=== PATIENT | male | born 1980 | race Hispanic/Latino ===

== ENCOUNTER 2019-07-10 10:37 | Day surgery (SDC) | payer OTHER ==
[2019-07-09 15:10] VITALS: BP 130/92
[2019-07-09 15:22] LABS: BASOPHILS % (AUTO) 0.9 % (0.0-5.0); EOSINOPHILS % (AUTO) 0.6 % (0.0-8.0); HEMATOCRIT 48.6 % (42-54); LYMPHOCYTES % (AUTO) 25.9 % (21.0-51.0); MEAN CORPUSCULAR HEMOGLOBIN 31.4 pg (27.0-33.0); MEAN CORPUSCULAR HGB CONC 34.3 g/dL (32.0-36.0); MEAN CORPUSCULAR VOLUME 91.8 fL (79-99); MONOCYTES % (AUTO) 6.2 % (3.0-13.0); NEUTROPHILS % (AUTO) 66.4 % (40.0-77.0); PLATELET COUNT (AUTO) 237 K/uL (130-400); RED CELL DISTRIBUTION WIDTH 13.9 % (11.0-15.5); WHITE BLOOD COUNT (AUTO) 7.3 K/uL (4.8-10.8)
[2019-07-09 15:31] LABS: CREATININE 0.9 mg/dL (0.5-1.5); POTASSIUM 4.1 mmol/L (3.5-5.1)
[2019-07-10] VITALS (17 sets, daily range): BP systolic 110–132; BP diastolic 74–89
[~2019-07-10] VITALS: Ht 157.5 cm; Wt 63.9 kg
[~2019-07-10 10:37] MED LIST: ACET-2743 PO
[2019-07-10] MEDS: CEFAZOLIN SODIUM 1 GM VIAL IVP ONE ×2 (11:00→14:55)
[2019-07-10] MEDS ORDERED: CEFAZOLIN SODIUM 1 GM VIAL ONE ×2 (11:20→15:20)
[2019-07-10] MEDS ORDERED: LACTATED RINGERS 1000ML 1,000 ML IV ONE (11:20)
--- NOTE | 2019-07-10 11:40 | NUR ---
POTENTIAL FOR INFECTION: SHAVED LEFT SHOULDER / UPPER ARM PER MOIZ MCINTOSH, FOLLOWED BY WIPING WITH JORDEN: 2% CHLORHEXIDINE GLUCONATE CLOTH PATIENTS PRE-OP SKIN PREP .
[2019-07-10] MEDS ORDERED: ONDANSETRON HCL 4 MG/2 ML VIAL ONE (14:41)
[2019-07-10] MEDS ORDERED: PROPOFOL 10 MG/ML 20ML VIAL IV ONE (14:41)
[2019-07-10] MEDS ORDERED: SUCCINYLCHOLINE 200MG/10ML SYR ONE (14:41)
[2019-07-10] MEDS ORDERED: LIDOCAINE PF 2% 5ML ABBOJECT ONE ×2 (14:41→14:42)
[2019-07-10] MEDS ORDERED: DEXAMETHASONE SOD PHOSPHATE 10MG/ML 1ML VIAL ONE (14:41)
[2019-07-10] MEDS ORDERED: GLYCOPYRROLATE 1 MG/5 ML SYRINGE ONE (14:41)
[2019-07-10] MEDS ORDERED: NEOSTIGMINE 5MG/5ML SYR IV ONE (14:42)
[2019-07-10] MEDS ORDERED: FENTANYL CITRATE PF 50 MCG/1 ML 2ML VIAL ONE (14:42)
[2019-07-10] MEDS ORDERED: MIDAZOLAM HCL 1 MG/ML 2ML VIAL ONE (14:42)
[2019-07-10] MEDS ORDERED: ROCURONIUM 10MG/1ML SYR 10 MG/ML ML ONE (14:42)
[2019-07-10] MEDS ORDERED: EPINEPHRINE 1 MG/ML 30ML VIAL IJ ONE (15:20)
[2019-07-10] MEDS ORDERED: ROPIVACAINE 0.5% 5MG/ML 30ML IJ ONE (16:58)
[2019-07-10] MEDS ORDERED: CEPH500B PO (17:22)
[2019-07-10] MEDS ORDERED: IBUP-2070 PO (17:22)
[2019-07-10] MEDS ORDERED: HYDR-4457 PO (17:22)
--- NOTE | 2019-07-10 20:06 | NUR ---
PT AAOX3, NO C/O PAIN TO LT SHOULDER, STATES JUST FEELS SORE, DRESSING IS D/I. PT ABLE TO TOLERATE FLUIDS. POST CARE INSTRUCTIONS GIVEN TO PT AND MOTHER, BOTH VERBALIZED UNDERSTANDING. PT GIVEN 3 PRESCRIPTIONS. PT ABLE TO DRESS AT BEDSIDE WITH ASSISTANCE. PT GIVEN ICE PACKS. PT PLACED IN WHEELCHAIR AND DRIVEN HOME.
== END 2019-07-10 19:20 | disposition home or self-care (01) ==
LOC: DAH 10:37
PROVIDERS: ATTEND Orthopaedic Surgery
DX: M75.52 Bursitis of left shoulder (principal); M25.812 Other specified joint disorders, left shoulder; M75.42 Impingement syndrome of left shoulder
CPT/HCPCS: 29822; 29824; 29826; 36415; 76942; 80048; 85025; A4215; A4221; A4223; A4565; A4600; A4649 ×2; A4930 ×2; A5120; A6204; G0168; J0171; J0330; J0690 ×2; J1100; J2001 ×2; J2250; J2405; J2704; J2710; J2795; J3010; J3490; J7120 ×2

== ENCOUNTER 2020-07-03 11:02 | Emergency (ER) | payer BC ==
[~2020-07-03 11:02] MED LIST changes: +CEPH500B PO; +HYDR-4457 PO; +IBUP-2070 PO
[2020-07-03] MEDS ORDERED: ONDANSETRON HCL 4 MG/2 ML VIAL ONE (11:27)
[2020-07-03] MEDS ORDERED: MORPHINE SULFATE 4 MG/1ML SYG ONE ×2 (11:28→11:54)
[2020-07-03 11:52] LABS: BASOPHILS % (AUTO) 1.1 % (0.0-5.0); EOSINOPHILS % (AUTO) 0.8 % (0.0-8.0); HEMATOCRIT 50.9 % (42-54); LYMPHOCYTES % (AUTO) 26.4 % (21.0-51.0); MEAN CORPUSCULAR HEMOGLOBIN 30.1 pg (27.0-33.0); MEAN CORPUSCULAR HGB CONC 33.6 g/dL (32.0-36.0); MEAN CORPUSCULAR VOLUME 89.6 fL (79-99); NEUTROPHILS % (AUTO) 64.5 % (40.0-77.0); PLATELET COUNT (AUTO) 195 K/uL (130-400); RED BLOOD CELL COUNT(AUTO) 5.68 MIL/uL (4.50-6.20); RED CELL DISTRIBUTION WIDTH 13.4 % (11.0-15.5); WHITE BLOOD COUNT (AUTO) 6.3 K/uL (4.8-10.8)
[2020-07-03] MEDS ORDERED: LORAZEPAM 2 MG/ML 1 ML VIAL ONE (11:52)
[2020-07-03 11:59] LABS: CREATININE 0.8 mg/dL (0.5-1.5); POTASSIUM 3.7 mmol/L (3.5-5.1)
[2020-07-03 12:02] LABS: INR 0.95 (0.85-1.15); PARTIAL THROMBOPLASTIN TIME 24.9 SEC (26.3-35.5); PROTHROMBIN TIME 10.3 SEC (9.6-11.6)
== END 2020-07-03 14:49 | disposition home or self-care (01) ==
LOC: EDH 11:02
DX: S82.842A Displaced bimalleolar fracture of left lower leg, initial encounter for closed fracture (principal); S82.432A Displaced oblique fracture of shaft of left fibula, initial encounter for closed fracture; W18.49XA Other slipping, tripping and stumbling without falling, initial encounter; Y93.89 Activity, other specified; Y92.89 Other specified places as the place of occurrence of the external cause; Y99.8 Other external cause status
CPT/HCPCS: 27810; 36415; 73600; 73610; 73700; 80048; 85025; 85610; 85730; 96374; 96375; 99285; J2060; J2270 ×2; J2405; 27840